=== PATIENT | male | born 1935 | race Caucasian/White ===

== ENCOUNTER → 2023-03-30 | Emergency (ER) | payer MEDICARE ==
[~2023-03-30] VITALS: Ht 172.7 cm; Wt 70.3 kg
[~2023-03-30] MED LIST: BACI/NEOM/POLY B OINT PKT 1 UDPKT PACKET ONE; BACI/NEOM/POLY B OINT PKT 1 UDPKT PACKET TP ONE; TDAP [DIPH/PERTUSSIS/TET] 0.5 ML VIAL IM ONE
--- NOTE | 2023-03-30 13:15 | NUR ---
PATIENT CAME WITH WOUND LT MIDDLE FINGER CUT BY DEMONSTRATOR SEWING TECHNIQUES.ALERT AND ORIENTED,ON ROOM AIR.ATTACHED TO MONITOR.
--- NOTE | 2023-03-30 13:18 | NUR ---
DR ROMERO AT BED SIDE
--- NOTE | 2023-03-30 13:23 | NUR ---
EMT AT BED SIDE FOR CLEANING THE WOUND
--- NOTE | 2023-03-30 14:17 | NUR ---
DR ROMERO AT BED SIDE
[2023-03-30 14:56] VITALS: BP 134/76; TEMP 97; O2SAT 97
--- NOTE | 2023-03-30 14:56 | NUR ---
Patient discharged to home in stable condition. Written and verbal after care instructions given. Patient verbalizes understanding of instruction.
== END | disposition home or self-care (01) ==
LOC: ER 12:55
DX: S61.213A Laceration without foreign body of left middle finger without damage to nail, initial encounter (principal); I10 Essential (primary) hypertension; W26.8XXA Contact with other sharp object(s), not elsewhere classified, initial encounter; Y93.89 Activity, other specified; Y92.89 Other specified places as the place of occurrence of the external cause; Y99.8 Other external cause status
CPT/HCPCS: 90715